=== PATIENT | male | born 1985 | race Caucasian/White ===

== ENCOUNTER 2022-11-14 15:29 | Outpatient (CLI) | payer BC ==
[2022-11-14 16:42] LABS: #Monocytes 0.4 10x3/uL (0.0-1.1); #Neutrophils 2.8 10x3/uL (1.5-8.4); %Basophils 0.6 % (0.0-2.0); %Eosinophils 0.4 % (0.0-6.0); %Lymphocytes 37.7 % (18.0-47.0); %Monocytes 7.9 % (0.0-10.0); %Neutrophils 53.2 % (40.0-75.0); Hemoglobin 15.3 g/dL (13.5-17.5); Mean Corpuscular HGB CONC 35.3 g/dL (32.0-36.0); Mean Corpuscular Hemoglobin 33.3 pg (27.0-33.0); Mean Corpuscular Volume 94.3 fl (81.2-95.1); Mean Platelet Volume 9.7 fl (7.4-10.4); Platelet Count 232 10x3/uL (150-450); RBC Distribution Width 11.3 % (11.5-14.5); Red Blood Cell (RBC) Count 4.59 10x6/uL (4.32-5.72); White Blood Cell (WBC) Count 5.3 10x3/uL (3.5-10.5)
== END 2022-11-14 15:30 | disposition home or self-care (01) ==
LOC: LABBT 15:29
PROVIDERS: ATTEND Orthopaedic Surgery Hand Surgery
DX: Z01.812 Encounter for preprocedural laboratory examination (principal); S62.9 Unspecified fracture of hand
CPT/HCPCS: 85025